=== PATIENT | female | born 1985 | race Caucasian/White ===

== ENCOUNTER 2020-12-13 20:31 | Inpatient (IN) | payer OTHER, SELFPAY ==
[~2020-12-13] VITALS: Ht 154.9 cm; Wt 58.1 kg
[2020-12-13 21:00] VITALS: BP 111/62
[2020-12-13] MEDS ORDERED: OXYTOCIN 20 UNITS in LACTATED RINGERS 1,000 ML IV SCH (21:10)
[2020-12-13] MEDS ORDERED: METHYLERGONOVINE 0.2 MG/ML AMP IM PRN (21:10)
[2020-12-13] MEDS ORDERED: LACTATED RINGERS 500 ML IV SCH (21:10)
[2020-12-13] MEDS ORDERED: MORPHINE SULFATE 5 MG/ML VIAL IVP PRN (21:10)
[2020-12-13] MEDS ORDERED: ONDANSETRON 4 MG/2 ML VIAL IVP PRN (21:10)
[2020-12-13 21:52] LABS: BASOPHILS # (AUTO) 0.2 K/uL (0.00-0.22); BASOPHILS % (AUTO) 1.3 % (0.0-2.0); EOSINOPHILS % (AUTO) 0.3 % (0.0-4.0); HEMATOCRIT 35.4 % (36-48); HEMOGLOBIN 11.9 g/dL (12.0-16.0); LYMPHOCYTES # (AUTO) 0.9 K/uL (2.5-16.5); LYMPHOCYTES % (AUTO) 6.5 % (20.5-51.1); MEAN CORPUSCULAR HEMOGLOBIN 28 pg (27-31); MEAN CORPUSCULAR HGB CONC 34 g/dL (33-37); MEAN CORPUSCULAR VOLUME 82.8 fL (80-94); MONOCYTES # (AUTO) 0.1 K/uL (0.8-1.0); NEUTROPHILS # (AUTO) 13.2 K/uL (1.8-7.7); NEUTROPHILS % (AUTO) 90.9 % (42.2-75.2); PLATELET COUNT (AUTO) 255 K/uL (140-450); RED BLOOD CELL COUNT(AUTO) 4.27 MIL/uL (4.20-5.40); RED CELL DISTRIBUTION WIDTH 13.6 % (11.6-13.7); WHITE BLOOD COUNT (AUTO) 14.5 K/uL (4.8-10.8)
[2020-12-13] MEDS ORDERED: MORPHINE SULFATE 10 MG/ML VIAL ONE (21:55)
[2020-12-13] MEDS: LACTATED RINGERS 1,000 ML IV SCH ×2 (22:04→23:59)
[2020-12-13 22:05] LABS: ALBUMIN 3.3 g/dL (3.4-5.0); ANION GAP 17.2 (8-16); CREATININE 0.5 mg/dL (0.6-1.3); POTASSIUM 3.2 mmol/L (3.5-5.1); TOTAL BILIRUBIN 0.5 mg/dL (0.0-1.0)
[2020-12-13 22:36] LABS: APPEARANCE,URINE CLOUDY (CLEAR); BILIRUBIN,URINE NEGATIVE (NEGATIVE); BLOOD, URINE 3+ (NEGATIVE); COLOR,URINE YELLOW (YELLOW); LEUKOCYTE ESTERASE ,URINE TRACE (NEGATIVE); NITRITE, URINE NEGATIVE (NEGATIVE); UGLUCOSE NEGATIVE (NEGATIVE)
[2020-12-13 22:48] LABS: RBC,URINE 80-100 /HPF (0-5); WBC,URINE 16-25 (MOD) /HPF (0-5)
[2020-12-14] MEDS ORDERED: ROPIVACAINE 0.2%/NS PREMIX 200 ML EPI ONE (00:26)
[2020-12-14] MEDS: LACTATED RINGERS 1,000 ML IV SCH ×3 (01:16→08:38)
[2020-12-14] MEDS ORDERED: TERBUTALINE 1 MG/ML VIAL SUBQ ONE (02:04)
[2020-12-14] MEDS ORDERED: TERBUTALINE 1 MG/ML VIAL SUBQ SCH ×2 (02:15→08:05)
[2020-12-14] MEDS ORDERED: ePHEDrine 50 MG/ML VIAL IV SCH (02:50)
[2020-12-14] MEDS ORDERED: ePHEDrine 50 MG/ML VIAL ONE (03:06)
[2020-12-14] MEDS ORDERED: AMPICILLIN 2,000 MG in NACL 0.9% 100 ML IV SCH (05:30)
[2020-12-14] MEDS ORDERED: AMPICILLIN 2,000 MG VIAL ONE (05:51)
[2020-12-14] MEDS ORDERED: OXYTOCIN 20 UNITS/LR PREMIX 1,000 ML IV ONE (07:45)
[2020-12-14] MEDS ORDERED: AMPICILLIN 1,000 MG in NACL 0.9% 50 ML IV SCH (09:30)
[2020-12-14] MEDS ORDERED: MEASLES, MUMPS, AND RUBELLA 1 VIAL SQVAC ONE (13:55)
[2020-12-14] MEDS ORDERED: BENZOCAINE/MENTHOL 20%-0.5% 60 GM CAN TP PRN (13:55)
[2020-12-14] MEDS ORDERED: METHYLERGONOVINE 0.2 MG/ML AMP IM PRN (13:55)
[2020-12-14] MEDS ORDERED: OXYTOCIN 10 UNITS/ML VIAL IM PRN (13:55)
[2020-12-14] MEDS ORDERED: METHYLERGONOVINE 0.2 MG TAB PO PRN (13:55)
[2020-12-14] MEDS ORDERED: IBUPROFEN 800 MG TAB PO PRN (13:55)
[2020-12-14] MEDS ORDERED: IBUPROFEN 600 MG TAB PO PRN (18:55)
[2020-12-15 06:33] LABS: HEMATOCRIT 18.6 % (36-48); HEMOGLOBIN 6.3 g/dL (12.0-16.0)
[2020-12-15 09:40] LABS: HEMATOCRIT 21.1 % (36-48)
[2020-12-15] MEDS ORDERED: diphenhydrAMINE 50 MG CAP PO SCH (10:00)
[2020-12-15] MEDS ORDERED: IRON SUCROSE COMPLEX 100 MG/5 ML VIAL IVP SCH (10:00)
[2020-12-15] MEDS ORDERED: IRON SUCROSE COMPLEX 100 MG/5 ML VIAL IV SCH (10:10)
[2020-12-15] MEDS ORDERED: IRON SUCROSE COMPLEX IVP SCH (10:10)
[2020-12-15] MEDS ORDERED: NACL 0.9% IVP SCH (10:10)
[2020-12-15] MEDS ORDERED: NACL 0.9% IV SCH (10:12)
[2020-12-15] MEDS ORDERED: IRON SUCROSE COMPLEX IV SCH (10:12)
--- NOTE | 2020-12-15 10:27 | NUR ---
PATIENT HAS BEEN SCREENED AND CATEGORIZED LOW NUTRITION RISK. PATIENT WILL BE SEEN WITHIN 7 DAYS OF ADMISSION. 12/20/20 ZARA HURTADO MBA, RD
== END 2020-12-15 14:25 | disposition home or self-care (01) | DRG 560 ==
LOC: MLD 20:31 → OBSVTOIN 20:32 → MFCC 12-14 13:40
PROVIDERS: ADMIT Obstetrics & Gynecology; ATTEND Obstetrics & Gynecology
PROC: 10E0XZZ Delivery of Products of Conception, External Approach (ICD-10-PCS; principal; 2020-12-14)
PROC: 10907ZC Drainage of Amniotic Fluid, Therapeutic from Products of Conception, Via Natural or Artificial Opening (ICD-10-PCS; 2020-12-14)
PROC: 0KQM0ZZ Repair Perineum Muscle, Open Approach (ICD-10-PCS; 2020-12-14)
PROC: 00HU33Z Insertion of Infusion Device into Spinal Canal, Percutaneous Approach (ICD-10-PCS; 2020-12-14)
PROC: 3E0R3BZ Introduction of Anesthetic Agent into Spinal Canal, Percutaneous Approach (ICD-10-PCS; 2020-12-14)
DX: O69.1XX0 Labor and delivery complicated by cord around neck, with compression, not applicable or unspecified (principal); O70.1 Second degree perineal laceration during delivery; Z37.0 Single live birth; Z3A.37 37 weeks gestation of pregnancy; Z20.822 Contact with and (suspected) exposure to COVID-19
CPT/HCPCS: 36415; 51702; 59409; 80053; 81001; 85018; 85025; 86592; 86886; 86900; 86901; 86920; 87086; 87653-90; G0378; J0290; J0690; J1756; J2270; J2590; J2795; J3105; J7060